=== PATIENT | male | born 1990 | race Hispanic/Latino ===

== ENCOUNTER → 2021-07-03 11:55 | Outpatient (CLI) | payer OTHER, SELFPAY ==
[2021-07-03 19:50] LABS: COVID19 - ORCAS (NP or Nasal) Negative (Negative)
== END ==
PROVIDERS: PCP Physician Assistant Medical; Visit Provider Physician Assistant Medical
DX: Z20.822 Contact with and (suspected) exposure to COVID-19 (principal)
CPT/HCPCS: U0003

== ENCOUNTER → 2021-07-29 08:51 | Outpatient (CLI) | payer OTHER, MEDICAID, SELFPAY ==
[2021-07-29 21:22] LABS: COVID19 - ORCAS (NP or Nasal) POSITIVE (Negative)
== END ==
PROVIDERS: PCP Physician Assistant Medical; Visit Provider Physician Assistant
DX: U07.1 COVID-19 (principal); Z20.822 Contact with and (suspected) exposure to COVID-19
CPT/HCPCS: U0003

== ENCOUNTER → 2023-03-02 10:28 | Outpatient (CLI) | payer OTHER, MEDICAID, SELFPAY ==
[2023-03-02 19:15] LABS: Add Manual Diff / Slide Review NO; Basophils Absolute Auto 0 /uL (0-100); Basophils Percent Auto 0.6 % (0-2); Eosinophils Absolute Auto 100 /uL (0-450); Eosinophils Percent Auto 1.1 % (2-4); Hematocrit 41.8 % (41-53); Hemoglobin 14.6 g/dL (13.5-17.5); Lymphocytes Absolute Auto 1500 /uL (1100-4500); Lymphocytes Percent Auto 25.2 % (25-40); Mean Corpuscular HGB Conc 34.9 % (30-36); Mean Corpuscular Hemoglobin 29.7 PG (26-34); Mean Corpuscular Volume 84.9 fL (80-100); Monocytes Absolute Auto 400 /uL (0-900); Monocytes Percent Auto 7.2 % (3-14); Neutrophils Absolute Auto 4000 /uL (1500-7000); Neutrophils Percent Auto 65.9 % (50-75); Platelet Count 283 X10^3/uL (150-400); Red Blood Cell Count 4.92 X10^6/uL (4.5-5.9); Red Cell Distribution Width 13.3 % (11.6-14.8); White Blood Cell Count 6.1 X10^3/uL (4.5-11.0)
[2023-03-02 19:31] LABS: Alanine Aminotransferase 30 IU/L (<50); Albumin 4.5 g/dL (3.5-5.0); Albumin Globulin Ratio 1.5 (1.0-2.8); Alkaline Phosphatase 74 U/L (38-126); Amylase 60 U/L (30-110); Aspartate Aminotransferase 25 IU/L (17-59); BUN Creatinine Ratio 16.9 (6-22); Bilirubin Total 0.8 mg/dL (0.2-1.3); Blood Urea Nitrogen 11 mg/dL (9-20); Calcium 9.2 mg/dL (8.4-10.2); Carbon Dioxide 25 mmol/L (22-32); Chloride 102 mmol/L (98-107); Cholesterol 210 mg/dL (140-199); Estimated Glomerular Filt Rate > 60 mL/min (>60); Globulin 3.1 g/dL (1.7-4.1); Glucose 102 mg/dL (70-100); HDL Cholesterol 67 mg/dL (40-60); HEMOLYSIS < 15 (0-50); LDL Cholesterol Calculated 126 mg/dL (<100); Lipase 58 U/L (23-300); Potassium 4.4 mmol/L (3.4-5.1); Sodium 136 mmol/L (137-145); Total Protein 7.6 g/dL (6.3-8.2); Triglycerides 85 mg/dL (35-150)
== END ==
PROVIDERS: PCP Physician Assistant; Visit Provider Physician Assistant
DX: R07.9 Chest pain, unspecified (principal); R10.12 Left upper quadrant pain; R10.9 Unspecified abdominal pain; Z87.898 Personal history of other specified conditions; Z13.6 Encounter for screening for cardiovascular disorders
CPT/HCPCS: 80053; 80061; 81002; 82150; 83690; 85025

== ENCOUNTER 2023-03-04 19:09 | Emergency (ER) | payer OTHER, MEDICAID, SELFPAY ==
[2023-03-04] VITALS (8 sets, daily range): BP systolic 110–141; BP diastolic 69–90; PULSE 63–104; RESP 13–22; TEMP 37.3; O2SAT 97–99; BMI 32.0
--- NOTE | 2023-03-04 19:22 | ED_ITS ---
HPI - Chest Pain General Chief Complaint: Chest Pain Stated Complaint: DR REF/ABD PAIN Time Seen by Provider: 03/04/23 19:21 Source: patient Mode of arrival: Ambulatory Limitations: no limitations History of Present Illness HPI narrative: 33-year-old male smoker without any significant chronic medical history presents with a chief complaint of about 2 weeks of gradually worsening abdominal pain that seems to be worse in his upper abdomen. He states it seems to come and go sometimes without any obvious provocation or palliation but other times seems to be worsened when he eats. He denies any radiation to his back. He is had nausea but denies any vomiting. Denies changes in his bowel habits such as constipation or diarrhea. He denies dysuria, frequency or urgency. Related Data Home Medications Medication Instructions Recorded Confirmed hydrocodone 5 mg-acetaminophen 325 1 tab PO Q6H PRN 03/04/23 03/04/23 mg tablet Previous Rx's Medication Instructions Recorded ibuprofen 800 mg tablet 800 mg PO TID PRN pain #40 tabs 03/24/22 naproxen 500 mg tablet 500 mg PO BID PRN pain #40 tabs 06/03/22 lorazepam 0.5 mg tablet 0.5 - 1 mg PO TID PRN panic 08/02/22 attack(s) #14 tabs triamcinolone acetonide 0.1 % 1 applic mucous membrane BID-TID 08/02/22 dental paste #5 grams amoxicillin 875 mg-potassium 1 tab PO Q12H #20 tabs 03/04/23 clavulanate 125 mg tablet hydrocodone 5 mg-acetaminophen 325 1 tab PO Q4-6H PRN pain #10 tabs 03/04/23 mg tablet ondansetron 4 mg disintegrating 4 mg PO TID-QID PRN nausea and 03/04/23 tablet vomiting #10 tabs thiamine HCl (vitamin B1) 100 mg 100 mg PO DAILY #90 tabs 03/04/23 tablet Allergies Allergy/AdvReac Type Severity Reaction Status Date / Time No Known Drug Allergies Allergy Verified 03/04/23 19:21 Review of Systems Review of Systems Narrative: GENERAL: Denies chills, fatigue, malaise, fever, sweats. HEENT: Denies sinus pain, ear pain, sore throat, difficulty swallowing, dizziness. RESPIRATORY: Denies dyspnea, cough, wheezing, hemoptysis, sputum. CARDIOVASCULAR: Denies chest pain, palpitations, orthopnea, edema, GASTROINTESTINAL: See HPI : Denies dysuria, frequency, incontinence, hematuria, urinary retention. MUSCULOSKELETAL: denies weakness, joint pain, or bony pain SKIN: Denies rash, skin lesions, or other NEUROLOGIC: Denies weakness, headache, numbness, change in speech, confusion, seizures, incoordination. PSYCHIATRIC: No concerning psychosocial issues. 12 point review of systems is negative except for those stated above Patient History Medical History Aphthous ulcer of mouth Social History Smoking Status: Current some day smoker Smoking Status: Current some day smoker alcohol intake frequency: other Substance Use Type: marijuana Exam Narrative Exam Narrative: GENERAL: [33] year old patient appears stated age. Well-developed patient, in mild distress. HEAD: Atraumatic. Normocephalic. EYES: Pupils equal round and reactive. Extraocular motions intact. No scleral icterus. No injection or drainage. ENT: Nose without bleeding, purulent drainage. Throat without erythema, tonsillar hypertrophy or exudate. Airway patent. NECK: Trachea midline. Non tender CARDIOVASCULAR: Regular rate and rhythm without murmurs, gallops, or rubs. RESPIRATORY: Clear to auscultation. Breath sounds equal bilaterally. No wheezes, rales, or rhonchi. GASTROINTESTINAL: Abdomen soft, tender in the epigastrium, nondistended. Sounds present EXTREMITIES: No edema or joint tenderness. BACK: Nontender without deformity or crepitance. No flank tenderness. NEURO: AOx3. SKIN: No rash or erythema of visible areas Initial Vital Signs Initial Vital Signs: Vital Signs Temperature 99.2 F 03/04/23 19:17 Pulse Rate 104 H 03/04/23 19:17 Respiratory Rate 18 03/04/23 19:17 Blood Pressure 141/90 H 03/04/23 19:17 Pulse Oximetry 97 03/04/23 19:17 Oxygen Delivery Method Room Air 03/04/23 19:17 Course Orders Ordered: ED Orders 03/04/23 21:09 CT abdomen pelvis w con Stat Discontinued Medications Hydrocodone Bitart/Acetaminophen (Hydrocodone/Acet 5/325 Prepack) 1 bottle MISC SEEINSTR ONE Stop: 03/04/23 21:50 Last Admin: 03/04/23 21:58 Dose: 1 bottle Documented By: ANABELLE Amoxicillin/Clavulanate Potassium (Amoxicillin/Clav 875/125 Mg) 1 tab PO NOW ONE Stop: 03/04/23 21:50 Last Admin: 03/04/23 21:57 Dose: 1 tab Documented By: ANABELLE Aspirin (Aspirin 81 Mg Chew Tab) 324 mg PO NOW ONE Stop: 03/04/23 19:23 Last Admin: 03/04/23 20:08 Dose: 324 mg Documented By: ANABELLE Sodium Chloride (Normal Saline 0.9%) 1,000 mls @ 1,000 mls/hr IV BOLUS ONE Stop: 03/04/23 22:08 Last Admin: 03/04/23 21:52 Dose: Not Given Documented By: ANABELLE Ondansetron HCl (Ondansetron 4 Mg Odt Prepack) 1 bottle MISC SEEINSTR ONE Stop: 03/04/23 21:50 Last Admin: 03/04/23 21:58 Dose: 1 bottle Documented By: ANABELLE Pantoprazole Sodium (Pantoprazole 40 Mg Vial) 40 mg IV NOW ONE Stop: 03/04/23 21:10 Last Admin: 03/04/23 21:52 Dose: 40 mg Documented By: ANABELLE Vital Signs Vital signs: Vital Signs - 8 hr 03/04/23 22:01 03/04/23 21:26 03/04/23 21:26 Pulse Rate 69 63 Respiratory Rate 18 15 Blood Pressure 133/72 122/90 Pulse Oximetry 99 99 Oxygen Delivery Method Room Air 03/04/23 21:30 03/04/23 21:30 Pulse Rate 65 Respiratory Rate 22 Blood Pressure 114/78 Pulse Oximetry 98 Oxygen Delivery Method MDM - Chest Pain Lab Data 03/04/23 19:31 03/04/23 19:31 Labs: Lab Results 03/04/23 03/04/23 03/04/23 Range/Units 19:31 19:31 19:31 WBC 11.1 H (4.5-11.0) X10^3/uL RBC 5.16 (4.5-5.9) X10^6/uL Hgb 14.9 (13.5-17.5) g/dL Hct 44.1 (41-53) % MCV 85.4 (80-100) fL MCH 28.9 (26-34) PG MCHC 33.9 (30-36) % RDW 13.2 (11.6-14.8) % Plt Count 306 (150-400) X10^3/uL Neut % (Auto) 61.4 (50-75) % Lymph % (Auto) 24.6 L (25-40) % Hopkins % (Auto) 9.9 (3-14) % Eos % (Auto) 3.0 (2-4) % Baso % (Auto) 1.1 (0-2) % Neut # (Auto) 6800 (8805-7644) /uL Lymph # (Auto) 2700 (4031-6517) /uL Hopkins # (Auto) 1100 H (0-900) /uL Eos # (Auto) 300 (0-450) /uL Baso # (Auto) 100 (0-100) /uL PT 13.0 H (10.1-12.7) SECONDS INR 1.1 (0.9-1.3) APTT 33 (26-36) SECONDS D-Dimer (<500) ng/ml Sodium 139 (137-145) mmol/L Potassium 3.9 (3.4-5.1) mmol/L Chloride 106 (98-107) mmol/L Carbon Dioxide 23 (22-32) mmol/L BUN 19 (9-20) mg/dL Creatinine 0.85 (0.66-1.25) mg/dL Estimated GFR > 60 (>60) mL/min BUN/Creatinine Ratio 22.4 H (6-22) Glucose 107 H (70-100) mg/dL Calcium 9.6 (8.4-10.2) mg/dL Magnesium 2.1 (1.6-2.3) mg/dL Total Bilirubin 0.6 (0.2-1.3) mg/dL AST 26 (17-59) IU/L ALT 29 (<50) IU/L Alkaline Phosphatase 75 (38-126) U/L Total Creatine Kinase 124 (55-170) U/L Troponin I < 0.012 (0.01-0.034) ng/mL Total Protein 8.0 (6.3-8.2) g/dL Albumin 4.7 (3.5-5.0) g/dL Globulin 3.3 (1.7-4.1) g/dL Albumin/Globulin Ratio 1.4 (1.0-2.8) Lipase 96 D (23-300) U/L 03/04/23 Range/Units 19:31 WBC (4.5-11.0) X10^3/uL RBC (4.5-5.9) X10^6/uL Hgb (13.5-17.5) g/dL Hct (41-53) % MCV (80-100) fL MCH (26-34) PG MCHC (30-36) % RDW (11.6-14.8) % Plt Count (150-400) X10^3/uL Neut % (Auto) (50-75) % Lymph % (Auto) (25-40) % Hopkins % (Auto) (3-14) % Eos % (Auto) (2-4) % Baso % (Auto) (0-2) % Neut # (Auto) (2043-1829) /uL Lymph # (Auto) (8487-0751) /uL Hopkins # (Auto) (0-900) /uL Eos # (Auto) (0-450) /uL Baso # (Auto) (0-100) /uL PT (10.1-12.7) SECONDS INR (0.9-1.3) APTT (26-36) SECONDS D-Dimer 424 (<500) ng/ml Sodium (137-145) mmol/L Potassium (3.4-5.1) mmol/L Chloride (98-107) mmol/L Carbon Dioxide (22-32) mmol/L BUN (9-20) mg/dL Creatinine (0.66-1.25) mg/dL Estimated GFR (>60) mL/min BUN/Creatinine Ratio (6-22) Glucose (70-100) mg/dL Calcium (8.4-10.2) mg/dL Magnesium (1.6-2.3) mg/dL Total Bilirubin (0.2-1.3) mg/dL AST (17-59) IU/L ALT (<50) IU/L Alkaline Phosphatase (38-126) U/L Total Creatine Kinase (55-170) U/L Troponin I (0.01-0.034) ng/mL Total Protein (6.3-8.2) g/dL Albumin (3.5-5.0) g/dL Globulin (1.7-4.1) g/dL Albumin/Globulin Ratio (1.0-2.8) Lipase (23-300) U/L MDM Narrative Medical decision making narrative: CC: 33-year-old male with epigastric pain and generalized abdominal pain Complicating co-morbidities: None known Data collected from: Patient Medical records reviewed: Prior notes reviewed in our EMR Differential considered, but not limited to: Bowel obstruction versus GERD versus pancreatitis versus gallbladder disease versus other Exam documented above, pertinent findings include: Heart rate regular, lungs cl ear to auscultation, upper abdomen tender on exam, bowel sounds present Lab Test results independently reviewed as above. Pertinent findings: Subtle leukocytosis of 11.1, no significant left shift, D-dimer 424, below cutoff, electrolytes and LFTs as well as lipase in normal range Independently reviewed EKG as above Imaging studies independently reviewed: CT of the abdomen and pelvis demonstra gene moderate distal colonic wall thickening with potential infectious versus inflammatory colitis Treatments: Aspirin, saline, Protonix, Augmentin, prepack for both Vicodin and Zofran Re-evaluations: Patient with significant improvement Discussion: Patient presents with abdominal pain, often colicky present for upwards of 2 weeks. No chest pain or shortness of breath. Pain is well controlled, tolerating orals. No signs of sepsis, labs are reassuring and imaging shows a likely colitis. Given slight elevation of white blood cells we will treat for an infectious source with Augmentin. Patient is sent with pain control, encouragement to Employee a clear liquid diet for a few days and then advance as tolerated. Return precautions include but not limited to worsening pain, persistent vomiting or other concerning symptoms Disposition: see below, along with detailed discharge instructions that have been reviewed with patient as well as indications for ED re-evaluation and additional outpatient follow up Discharge Plan Departure Patient Disposition: Home Clinical Impression: Colitis Instructions: DI for Colitis Activity Restrictions/Additional Instructions: *You have been diagnosed with [abdominal pain due to colitis] *What to do: *Please continue to take your regular medications as directed. [x ] New medication prescriptions sent to your pharmacy: [ [facility]] *Please follow up with your primary care provider in 2-3 days, call for an appointment. Let them know you were seen in the Emergency Department and that we ask that you be seen in follow up. We will electronically transmit a record of today's note if your PCP is in our system *Please consider a clear liquid diet for the next 24-48 hours and then slowly advance to regular as tolerated. Also, try to avoid alcohol, nicotine, caffeine, spicy, acidic or fatty foods as this may worsen your symptoms *If you do not have a primary care provider please contact the [facility] Resource line at [phone]. They will ask some questions about your medical history and help get you set up with a doctor in the community. *Return to Emergency Department if you should have any new, worsening or concerning symptoms, such as [fever greater than 101 F, shaking chills, worsening pain, persistent vomiting or other bothersome symptoms] Prescriptions: New hydrocodone-acetaminophen 5-325 mg tablet 1 tab PO Q4-6H PRN (Reason: pain) Qty: 10 0RF ondansetron 4 mg tablet,disintegrating 4 mg PO TID-QID PRN (Reason: nausea and vomiting) Qty: 10 0RF amoxicillin-pot clavulanate 875-125 mg tablet 1 tab PO Q12H Qty: 20 0RF No Action naproxen 500 mg tablet 500 mg PO BID PRN (Reason: pain) Qty: 40 0RF Rx Instructions: Take with food hydrocodone-acetaminophen 5-325 mg tablet 1 tab PO Q6H PRN thiamine HCl (vitamin B1) 100 mg tablet 100 mg PO DAILY Qty: 90 3RF Rx Instructions: take every day ibuprofen 800 mg tablet 800 mg PO TID PRN (Reason: pain) Qty: 40 0RF triamcinolone acetonide 0.1 % paste 1 applic mucous membrane BID-TID Qty: 5 0RF lorazepam 0.5 mg tablet 0.5 - 1 mg PO TID PRN (Reason: panic attack(s)) Qty: 14 0RF Referrals: Ruth Ann PA-C [Primary Care Provider] - Stand Alone Forms: Patient Portal/API
--- NOTE | 2023-03-04 19:22 | DI.RAD.S_ITS ---
PROCEDURE: XR CHEST 1V INDICATIONS: chest pain TECHNIQUE: One view of the chest was acquired. COMPARISON: None. FINDINGS: Surgical changes and devices: None. Lungs and pleura: An incomplete inspiratory result is noted, causing a crowded appearance to the lung markings. No focal infiltrates are seen. No pneumothorax or significant pleural effusions are seen. Mediastinum: Mediastinal contours appear normal. Heart size is within normal limits for portable technique. Bones and chest wall: No suspicious bony lesions. Overlying soft tissues appear unremarkable. IMPRESSION: Portable chest within normal limits for age. Dictated by: Denver Greer M.D. on 03/04/2023 at 19:34 Approved by: Denver Greer M.D. on 03/04/2023 at 19:35
[2023-03-04 19:37] LABS: Add Manual Diff / Slide Review NO; Basophils Absolute Auto 100 /uL (0-100); Basophils Percent Auto 1.1 % (0-2); Eosinophils Absolute Auto 300 /uL (0-450); Hematocrit 44.1 % (41-53); Hemoglobin 14.9 g/dL (13.5-17.5); Lymphocytes Absolute Auto 2700 /uL (1100-4500); Lymphocytes Percent Auto 24.6 % (25-40); Mean Corpuscular HGB Conc 33.9 % (30-36); Mean Corpuscular Hemoglobin 28.9 PG (26-34); Mean Corpuscular Volume 85.4 fL (80-100); Monocytes Absolute Auto 1100 /uL (0-900); Monocytes Percent Auto 9.9 % (3-14); Neutrophils Absolute Auto 6800 /uL (1500-7000); Neutrophils Percent Auto 61.4 % (50-75); Platelet Count 306 X10^3/uL (150-400); Red Blood Cell Count 5.16 X10^6/uL (4.5-5.9); Red Cell Distribution Width 13.2 % (11.6-14.8); White Blood Cell Count 11.1 X10^3/uL (4.5-11.0)
[2023-03-04 19:47] LABS: INR 1.1 (0.9-1.3)
[2023-03-04 19:49] LABS: PTT Partial Thromboplastin Tim 33 SECONDS (26-36)
[2023-03-04 19:52] LABS: Alanine Aminotransferase 29 IU/L (<50); Albumin 4.7 g/dL (3.5-5.0); Albumin Globulin Ratio 1.4 (1.0-2.8); Alkaline Phosphatase 75 U/L (38-126); Aspartate Aminotransferase 26 IU/L (17-59); BUN Creatinine Ratio 22.4 (6-22); Bilirubin Total 0.6 mg/dL (0.2-1.3); Blood Urea Nitrogen 19 mg/dL (9-20); Calcium 9.6 mg/dL (8.4-10.2); Carbon Dioxide 23 mmol/L (22-32); Chloride 106 mmol/L (98-107); Creatine Kinase 124 U/L (55-170); Estimated Glomerular Filt Rate > 60 mL/min (>60); Globulin 3.3 g/dL (1.7-4.1); Glucose 107 mg/dL (70-100); HEMOLYSIS < 15 (0-50); Lipase 96 U/L (23-300); Magnesium 2.1 mg/dL (1.6-2.3); Potassium 3.9 mmol/L (3.4-5.1); Sodium 139 mmol/L (137-145)
[2023-03-04 19:56] LABS: D Dimer 424 ng/ml (<500)
[2023-03-04 20:03] LABS: Troponin I < 0.012 ng/mL (0.01-0.034)
[2023-03-04] MEDS: ASPIRIN 81 MG CHEW TAB 324 MG PO (20:08)
--- NOTE | 2023-03-04 21:09 | DI.CT.S_ITS ---
PROCEDURE: CT ABDOMEN PELVIS W CON INDICATIONS: severe abdominal pain TECHNIQUE: After the administration of IV contrast, axial sections were acquired from the lung bases to the pubic symphysis. Coronal and sagittal reformats were performed. For radiation dose reduction, the following was used: automated exposure control, adjustment of mA and/or kV according to patient size. COMPARISON: [facility], CR, XR CHEST 1V, 03/04/2023, 19:21. FINDINGS: Image quality: Excellent. Lung bases: Unremarkable. Heart: No significant findings. ABDOMEN: Liver: Unremarkable. Gallbladder: Unremarkable. Biliary ducts: Unremarkable. Pancreas: Unremarkable. Spleen: Unremarkable. Incidental note is made of an accessory splenule along the anterior aspect of the primary spleen. Adrenal Glands: Generalized thickening is seen of the adrenal glands, yet without focal adrenal nodules. Kidneys and Ureters: Nonobstructing left-sided kidney stones are seen, with the largest inferiorly measuring 3-4 mm. Stomach and Bowel: There is moderate wall thickening seen involving the distal colon, beginning at the level of the transverse colon and continuing through the rectum. The more proximal colon is within normal limits. No dilated loops of small bowel are seen. Peritoneum: No peritoneal abscess is seen. No abnormal intraperitoneal fluid. No free air. Ventral Wall: No hernia. Abdominal Nodes: No retroperitoneal or mesenteric adenopathy by size criteria. Vessels: Aorta and inferior vena cava are normal in size. PELVIS: Pelvic Organs: Unremarkable. Bladder: Unremarkable. Pelvic Nodes: No enlarged lymph nodes. Miscellaneous: No inguinal hernias are seen. Bones: This patient has transitional lumbar anatomy. For the purposes of this examination, the level with the last pair of ribs is considered to be T12. By this numbering scheme, the L5 level is is on the right. IMPRESSION: Moderate distal colonic wall thickening can be seen. Please correlate with potential infectious and inflammatory causes of colitis. No findings of perforation or abscess can be seen. 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 Dictated by: Denver Greer M.D. on 03/04/2023 at 20:36 Approved by: Denver Greer M.D. on 03/04/2023 at 20:39
[2023-03-04] MEDS: PANTOPRAZOLE 40 MG VIAL IV (21:52)
[2023-03-04] MEDS: AMOXICILLIN/CLAV 875/125 MG 1 TAB PO (21:57)
[2023-03-04] MEDS: ONDANSETRON 4 MG ODT PREPACK 1 BOTTLE MISC (21:58)
[2023-03-04] MEDS: HYDROCODONE/ACET 5/325 PREPACK 1 BOTTLE MISC (21:58)
== END 2023-03-04 22:07 | disposition home or self-care (01) ==
PROVIDERS: Emergency Provider Emergency Medicine; PCP Physician Assistant
DX: K52.9 Noninfective gastroenteritis and colitis, unspecified (principal); R07.9 Chest pain, unspecified
CPT/HCPCS: 36415; 71045; 74177; 80053; 82550; 83690; 83735; 84484; 85025; 85379; 85610; 85730; 93005; 93010; 96374; 99284; C9113; Q9967

== ENCOUNTER 2023-10-13 14:23 | Emergency (ER) | payer OTHER, MEDICAID, SELFPAY ==
[2023-10-13 14:31] VITALS: BP 159/90
[2023-10-13 14:32] VITALS: PULSE 72; O2SAT 100
[2023-10-13 14:37] VITALS: BP 159/90; PULSE 71; RESP 20; TEMP 37.4; O2SAT 99; BMI 33.4
--- NOTE | 2023-10-13 14:40 | ED_ITS ---
HPI - General Adult General Chief complaint: Abdominal Pain Stated complaint: lower abd pain, sent by [facility] Time Seen by Provider: 10/13/23 14:33 Source: patient Mode of arrival: Ambulatory Limitations: no limitations History of Present Illness HPI narrative: Patient is a 33-year-old male who is here for evaluation of generalized abdominal discomfort and diarrhea. His symptoms been going on for approximately 1 week. It started initially with 2 days of vomiting and is now moved to diarrhea. No blood in his stool. No fevers. He has had his appendix removed. No urinary symptoms. He just recently returned home from a trip to [place]. He saw his primary care doctor who sent him to the emergency department for further evaluation. Related Data Previous Rx's Medication Instructions Recorded ciprofloxacin HCl 500 mg tablet 500 mg PO BID 5 days #10 tabs 10/13/23 (Cipro) Allergies Allergy/AdvReac Type Severity Reaction Status Date / Time No Known Drug Allergies Allergy Verified 10/13/23 08:43 Review of Systems Constitutional Constitutional: Reports system reviewed and no additional complaints, except as documented Gastrointestinal Gastrointestinal: Reports system reviewed and no additional complaints, except as documented Genitourinary Genitourinary: Reports system reviewed and no additional complaints, except as documented Integumentary/Breasts Skin/Breast: Reports system reviewed and no additional complaints, except as documented Neurologic Neurologic: Reports system reviewed and no additional complaints, except as documented Patient History Medical History History of kidney stones Cannabis dependence Alcohol dependence in remission Elevated blood pressure reading Hematuria Aphthous ulcer of mouth Social History Smoking Status: Current some day smoker 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 Quit alcohol 2 weeks ago feels he drinks a lot less than his peers (4-5/night) Using marijuana daily 02/2023 Smoking Status: Current some day smoker alcohol intake frequency: other Substance Use Type: marijuana Exam Initial Vital Signs Initial Vital Signs: Vital Signs Blood Pressure 159/90 H 10/13/23 14:31 Const General: cooperative and No ill appearing HENMT Head: normal to inspection and normocephalic Resp Effort & Inspection: normal respiratory effort Auscultation: clear to auscultation bilaterally Cardio Rate: regular rate Rhythm: regular rhythm GI Inspection: normal to inspection and non-distended Palpation: soft, No firm, No guarding and tender Neuro General: patient alert and patient awake Course Orders Ordered: ED Orders 10/13/23 14:46 CT abdomen pelvis w con Stat 10/13/23 15:19 Complete Blood Count AUTO DIFF Stat Comprehensive Metabolic Panel Stat Lipase Stat Discontinued Medications Sodium Chloride (Normal Saline 0.9%) 1,000 mls @ 1,000 mls/hr IV BOLUS ONE Stop: 10/13/23 15:42 Last Admin: 10/13/23 15:25 Dose: 1,000 mls/hr Documented By: [email or web address] Vital Signs Vital signs: Vital Signs - 8 hr 10/13/23 14:31 10/13/23 14:32 10/13/23 14:37 Temperature 99.3 F Pulse Rate 72 71 Respiratory Rate 20 Blood Pressure 159/90 H 159/90 H Pulse Oximetry 100 99 Oxygen Delivery Method Room Air 10/13/23 15:00 Temperature Pulse Rate 61 Respiratory Rate Blood Pressure Pulse Oximetry 100 Oxygen Delivery Method Medical Decision Making Lab Data Lab results reviewed: Yes I reviewed the patient's lab results. 10/13/23 15:19 10/13/23 15:19 Labs: Lab Results 10/13/23 Range/Units 15:19 WBC 9.5 (4.5-11.0) X10^3/uL RBC 5.31 (4.5-5.9) X10^6/uL Hgb 15.5 (13.5-17.5) g/dL Hct 44.5 (41-53) % MCV 83.7 (80-100) fL MCH 29.2 (26-34) PG MCHC 34.9 (30-36) % RDW 12.7 (11.6-14.8) % Plt Count 310 (150-400) X10^3/uL Neut % (Auto) 60.1 (50-75) % Lymph % (Auto) 22.9 L (25-40) % [place] % (Auto) 13.4 (3-14) % Eos % (Auto) 2.7 (2-4) % Baso % (Auto) 0.9 (0-2) % Neut # (Auto) 5700 (3639-7469) /uL Lymph # (Auto) 2200 (9007-9453) /uL [place] # (Auto) 1300 H (0-900) /uL Eos # (Auto) 300 (0-450) /uL Baso # (Auto) 100 (0-100) /uL Sodium 136 L (137-145) mmol/L Potassium 3.2 L (3.4-5.1) mmol/L Chloride 105 (98-107) mmol/L Carbon Dioxide 22 (22-32) mmol/L BUN 12 (9-20) mg/dL Creatinine 0.67 (0.66-1.25) mg/dL Estimated GFR > 60 (>60) mL/min BUN/Creatinine Ratio 17.9 (6-22) Glucose 115 H (70-100) mg/dL Calcium 8.6 (8.4-10.2) mg/dL Total Bilirubin 1.0 (0.2-1.3) mg/dL AST 55 (17-59) IU/L ALT 85 H (<50) IU/L Alkaline Phosphatase 79 (38-126) U/L Total Protein 7.5 (6.3-8.2) g/dL Albumin 4.4 (3.5-5.0) g/dL Globulin 3.1 (1.7-4.1) g/dL Albumin/Globulin Ratio 1.4 (1.0-2.8) Lipase 209 (23-300) U/L Imaging Data CT scan - abdomen/pelvis: Radiologist's Impression: PROCEDURE: CT ABDOMEN PELVIS W CON INDICATIONS: Generalized abdominal pain with diarrhea TECHNIQUE: After the administration of intravenous contrast, axial sections acquired from the lung bases to the pubic symphysis. Coronal and sagittal reformats were performed. For radiation dose reduction, the following was used: automated exposure control, adjustment of mA and/or kV according to patient size. COMPARISON: [facility], CT, CT ABDOMEN PELVIS W CON, 03/04/2023, 21:10. FINDINGS: Image quality: Diagnostic. Lower Chest: No significant findings. ABDOMEN: Liver: No solid mass. Gallbladder: No radiopaque gallstones or wall thickening. Biliary ducts: No biliary dilation. Pancreas: No ductal dilation. Spleen: Size is within normal limits. Incidental note is made of an accessory splenule along the anterolateral aspect of the primary spleen. Adrenal Glands: No adrenal nodules. Kidneys and Ureters: No hydronephrosis. No solid mass. No complex renal cystic lesion which requires follow up. Nonobstructing left-sided kidney stones are seen that measure up to 5 mm and 400 Hounsfield units. Stomach and Bowel: The colon is relatively decompressed. [id number] generalized colonic wall thickening can be seen. No dilated loops of small bowel are seen. A gastric tube is seen, with the tip not visible, yet traversing below the level of the diaphragm. Peritoneum: No abnormal intraperitoneal fluid. No free air. Ventral Wall: No significant ventral hernia. Abdominal Nodes: No retroperitoneal or mesenteric adenopathy by size criteria. Vessels: Aorta and inferior vena cava are normal in size. PELVIS: Pelvic Organs: Unremarkable. Bladder: No bladder wall thickening, accounting for underdistention. Pelvic Nodes: No enlarged lymph nodes. Miscellaneous: No inguinal hernias are seen. Bones: No aggressive osseous abnormality. This patient has transitional lumbar anatomy. For the purposes of this examination, the level with the last pair of ribs is considered to be T12. By this numbering scheme, the L5 level is transitional and is prominently sacralized on the right. IMPRESSION: Moderate generalized colonic wall thickening can be seen, which is consistent with colitis. Please correlate with infectious and inflammatory causes of colitis. Additional findings: Accessory splenule Nonobstructing left-sided kidney stones Transitional lumbar anatomy, with a sacralized L5 level on the right MDM Narrative Medical decision making narrative: Patient has a relatively benign abdominal exam. His labs are unremarkable. Tolerating oral intake. CT scan shows colitis which is very consistent with his presentation today. He was no longer vomiting. The plan will be to provide a prescription for antibiotics but he was going to hold on filling this for the next 24-48 hours to see if his symptoms are self-limiting. If they worsen then he can fill the antibiotics and take them as directed. No indication for admission to the hospital. He was given return precautions. He expressed understanding and agreement. Discharge Plan Departure Patient Disposition: Home Clinical Impression: Colitis, Diarrhea Instructions: Diarrhea, DI for Colitis Activity Restrictions/Additional Instructions: Be sure that you were increasing your fluid intake. Keep the prescription for antibiotics and see how your symptoms go over the next 24-48 hours. If your symptoms are not improving or worsening fill the prescription and start taking it as directed. Return to the emergency department for worsening symptoms Prescriptions: New ciprofloxacin HCl [Cipro] 500 mg tablet 500 mg PO BID 5 Days Qty: 10 0RF Referrals: Ruth Ann PA-C [Primary Care Provider] - Stand Alone Forms: Patient Portal/API
--- NOTE | 2023-10-13 14:46 | DI.CT.S_ITS ---
PROCEDURE: CT ABDOMEN PELVIS W CON INDICATIONS: Generalized abdominal pain with diarrhea TECHNIQUE: After the administration of intravenous contrast, axial sections acquired from the lung bases to the pubic symphysis. Coronal and sagittal reformats were performed. For radiation dose reduction, the following was used: automated exposure control, adjustment of mA and/or kV according to patient size. COMPARISON: [facility], CT, CT ABDOMEN PELVIS W CON, 03/04/2023, 21:10. FINDINGS: Image quality: Diagnostic. Lower Chest: No significant findings. ABDOMEN: Liver: No solid mass. Gallbladder: No radiopaque gallstones or wall thickening. Biliary ducts: No biliary dilation. Pancreas: No ductal dilation. Spleen: Size is within normal limits. Incidental note is made of an accessory splenule along the anterolateral aspect of the primary spleen. Adrenal Glands: No adrenal nodules. Kidneys and Ureters: No hydronephrosis. No solid mass. No complex renal cystic lesion which requires follow up. Nonobstructing left-sided kidney stones are seen that measure up to 5 mm and 400 Hounsfield units. Stomach and Bowel: The colon is relatively decompressed. [id number] generalized colonic wall thickening can be seen. No dilated loops of small bowel are seen. A gastric tube is seen, with the tip not visible, yet traversing below the level of the diaphragm. Peritoneum: No abnormal intraperitoneal fluid. No free air. Ventral Wall: No significant ventral hernia. Abdominal Nodes: No retroperitoneal or mesenteric adenopathy by size criteria. Vessels: Aorta and inferior vena cava are normal in size. PELVIS: Pelvic Organs: Unremarkable. Bladder: No bladder wall thickening, accounting for underdistention. Pelvic Nodes: No enlarged lymph nodes. Miscellaneous: No inguinal hernias are seen. Bones: No aggressive osseous abnormality. This patient has transitional lumbar anatomy. For the purposes of this examination, the level with the last pair of ribs is considered to be T12. By this numbering scheme, the L5 level is transitional and is prominently sacralized on the right. IMPRESSION: Moderate generalized colonic wall thickening can be seen, which is consistent with colitis. Please correlate with infectious and inflammatory causes of colitis. 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 on 10/13/2023 at 14:40 Approved by: Denver Greer M.D. on 10/13/2023 at 14:44
[2023-10-13 15:00] VITALS: PULSE 61; O2SAT 100
[2023-10-13] MEDS: SODIUM CHLORIDE 0.9% 1,000 ML 1000 ML IV (15:25)
[2023-10-13 15:26] LABS: Add Manual Diff / Slide Review NO; Basophils Absolute Auto 100 /uL (0-100); Basophils Percent Auto 0.9 % (0-2); Eosinophils Absolute Auto 300 /uL (0-450); Eosinophils Percent Auto 2.7 % (2-4); Hematocrit 44.5 % (41-53); Hemoglobin 15.5 g/dL (13.5-17.5); Lymphocytes Absolute Auto 2200 /uL (1100-4500); Lymphocytes Percent Auto 22.9 % (25-40); Mean Corpuscular HGB Conc 34.9 % (30-36); Mean Corpuscular Hemoglobin 29.2 PG (26-34); Mean Corpuscular Volume 83.7 fL (80-100); Monocytes Absolute Auto 1300 /uL (0-900); Monocytes Percent Auto 13.4 % (3-14); Neutrophils Absolute Auto 5700 /uL (1500-7000); Neutrophils Percent Auto 60.1 % (50-75); Platelet Count 310 X10^3/uL (150-400); Red Blood Cell Count 5.31 X10^6/uL (4.5-5.9); Red Cell Distribution Width 12.7 % (11.6-14.8); White Blood Cell Count 9.5 X10^3/uL (4.5-11.0)
[2023-10-13 15:41] LABS: Alanine Aminotransferase 85 IU/L (<50); Albumin 4.4 g/dL (3.5-5.0); Albumin Globulin Ratio 1.4 (1.0-2.8); Alkaline Phosphatase 79 U/L (38-126); Aspartate Aminotransferase 55 IU/L (17-59); BUN Creatinine Ratio 17.9 (6-22); Blood Urea Nitrogen 12 mg/dL (9-20); Calcium 8.6 mg/dL (8.4-10.2); Carbon Dioxide 22 mmol/L (22-32); Chloride 105 mmol/L (98-107); Estimated Glomerular Filt Rate > 60 mL/min (>60); Globulin 3.1 g/dL (1.7-4.1); Glucose 115 mg/dL (70-100); HEMOLYSIS 19 (0-50); Lipase 209 U/L (23-300); Potassium 3.2 mmol/L (3.4-5.1); Sodium 136 mmol/L (137-145); Total Protein 7.5 g/dL (6.3-8.2)
[2023-10-13 16:03] VITALS: O2SAT 94
[2023-10-13 16:04] VITALS: BP 131/78; PULSE 72; O2SAT 100
== END 2023-10-13 16:14 | disposition home or self-care (01) ==
PROVIDERS: Emergency Provider Emergency Medicine; PCP Physician Assistant
DX: K52.9 Noninfective gastroenteritis and colitis, unspecified (principal)
CPT/HCPCS: 36415; 74177; 80053; 83690; 85025; 99284; Q9967

== ENCOUNTER → 2023-12-29 08:48 | Outpatient (CLI) | payer OTHER, MEDICAID, SELFPAY ==
[2023-12-30 01:55] LABS: Hepatitis B Surface Antigen NEGATIVE s/c (NEGATIVE)
[2023-12-30 01:59] LABS: Hep C Virus Ab w/Reflex Quant NEGATIVE s/c (NEGATIVE)
[2023-12-30 03:43] LABS: Hemoglobin A1C% w Est Avg Glu 5.5 % (4.0-6.0)
[2023-12-30 04:37] LABS: Alanine Aminotransferase 37 IU/L (<50); Albumin 4.6 g/dL (3.5-5.0); Albumin Globulin Ratio 1.5 (1.0-2.8); Alkaline Phosphatase 87 U/L (38-126); Aspartate Aminotransferase 26 IU/L (17-59); Bilirubin Total 0.8 mg/dL (0.2-1.3); Bilirubin Unconjugated 0.3 mg/dL (0.0-1.1); Cholesterol 243 mg/dL (140-199); HDL Cholesterol 64 mg/dL (40-60); HEMOLYSIS < 15 (0-50); LDL Cholesterol Calculated 142 mg/dL (<100); Total Protein 7.6 g/dL (6.3-8.2); Triglycerides 187 mg/dL (35-150)
[2023-12-30 05:54] LABS: Ferritin 68 ng/mL (18-464)
[2023-12-30 05:59] LABS: HEMOLYSIS < 15 (0-50); TSH w/ Reflex to FT4 3.67 uIU/mL (0.47-4.68)
[2023-12-31 00:36] LABS: Hepatitis B Core Antibody Negative (Negative)
== END ==
PROVIDERS: PCP Family Medicine; Visit Provider Family Medicine
DX: R79.89 Other specified abnormal findings of blood chemistry (principal)
CPT/HCPCS: 80061; 80076; 82728; 83036; 83540; 83550; 84443; 86704; 86706; 86803; 87340

== ENCOUNTER 2024-03-19 12:30 | Day surgery (SDC) | payer OTHER, MEDICAID, SELFPAY ==
[2024-03-19] VITALS (10 sets, daily range): BP systolic 88–151; BP diastolic 55–102; PULSE 56–671; RESP 8–26; TEMP 36.2–36.7; O2SAT 82–100
--- NOTE | 2024-03-19 | PATH_ITS ---
[facility] Accession Number: [id number] No. of containers..04 Tissue . 01 Material submitted: . PART A: duodenum - DUODENUM PART B: colon - RIGHT COLON PART C: colon - TRANSVERSE COLON PART D: colon - LEFT COLON . 01 Diagnosis: A. DUODENUM, BIOPSY: Duodenal mucosa with no diagnostic abnormality. Negative for active inflammation, features of sprue, dysplasia, or malignancy. . B. RIGHT COLON, BIOPSY: Colonic mucosa with no diagnostic abnormality. Negative for active, chronic, and microscopic colitis. Negative for dysplasia and malignancy. . C. TRANSVERSE COLON, BIOPSY: Colonic mucosa with no diagnostic abnormality. Negative for active, chronic, and microscopic colitis. Negative for dysplasia and malignancy. . D. LEFT COLON, BIOPSY: Colonic mucosa with no diagnostic abnormality. Negative for active, chronic, and microscopic colitis. Negative for dysplasia and malignancy. . [facility] 03/21/2024 1703 Local . 01 Electronically signed: . Doug Pizano MD, PhD, Pathologist NPI- [id number] . 01 Gross description: . Part A: DUODENUM: Received in formalin is 1 fragment(s) of wilkerson, soft tissue measuring 0.3 x 0.2 x 0.2 cm submitted entirely in 1 cassette(s) Part B: RIGHT COLON: Received in formalin is 1 fragment(s) of wilkerson, soft tissue measuring 0.3 x 0.3 x 0.3 cm submitted entirely in 1 cassette(s) Part C: TRANSVERSE COLON: Received in formalin are 2 fragment(s) of wilkerson, soft tissue measuring 0.2 x 0.2 x 0.2 cm to 0.4 x 0.3 x 0.2 cm submitted entirely in 1 cassette(s) Part D: LEFT COLON: Received in formalin are 2 fragment(s) of wilkerson, soft tissue measuring 0.3 x 0.2 x 0.1 cm to 0.5 x 0.2 x 0.2 cm submitted entirely in 1 cassette(s) /VINCE 03/20/2024 0133 Local . 01 Pathologist provided ICD-10: R19.4 . 01 CPT . 390624, 732803, 780876, [id number] Specimen Comment: A courtesy copy of this report has been sent to [phone] Performed at: [address] [id number] MD Ankur Griffith MD Phone: [phone]
--- NOTE | 2024-03-19 14:14 | PM.HP.1 ---
History of Present Illness History of Present Illness Date Patient Seen: 03/19/24 Time Patient Seen: 14:14 Chief complaint: EGD & Colonoscopy w/poss bx's Narrative: Enrique is a 34-year-old man who presents with chronic diarrhea and abdominal pain. See the office note from January for details. His abdominal pain has not been bad lately. 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 Quit alcohol 2 weeks ago feels he drinks a lot less than his peers (4-5/night) Using marijuana daily 02/2023 Meds Home Medications and Allergies Home Medications Medication Instructions Recorded Confirmed Type fluvoxamine 100 mg tablet See Rx Instructions PO BEDTIME #60 01/06/24 02/27/24 Rx tabs fluvoxamine 100 mg tablet 100 mg PO BID 03/19/24 03/19/24 History Exam Const General: No acute distress Resp Effort & Inspection: normal respiratory effort Assessment & Plan Assessment and plan (1) Colitis: Status: Chronic Plan EGD and colonoscopy Time-Based Coding :: [TOTAL MINUTES] spent with patient and on the chart (including review of chart, obtaining history, exam, reviewing outside data, placing orders, documenting exam and treatment plan, and counseling patient) on [DATE].
[2024-03-19] MEDS: LACTATED RINGERS 1,000 ML 150 ML IV (14:30)
--- NOTE | 2024-03-19 15:37 | PM.OP.EC ---
Operative Date/Time/Diagnoses Date of procedure: 03/19/24 Time of procedure: 15:37 Pre-op diagnosis: Chronic diarrhea and abdominal pain Post-op diagnosis: same Procedure & Clinicians Study performed: EGD and colonoscopy Same procedure as scheduled: Yes Surgeon: Adam Patel Procedure Notes Procedure in detail: Surgeon: Adam Patel MD Anesthesia: Noelle Pardo CRNA Procedure in detail: A timeout was performed. A bite blocked was placed and monitors were attached to the patient. The patient was positioned in the left lateral decubitus position. Sedation was administered. Once the patient was sedated the endoscope was inserted through the bite block and passed through the esophagus and stomach and into the duodenum. No obvious abnormalities were identified. We performed random biopsies of the duodenal mucosa. We then withdrew the scope into the stomach. No abnormalities were identified. The endoscope was retroflexed and no hiatal hernia was seen. The endoscope was straightned and withdrawn into the esophagus. No abnormalities were seen. EGD findings: Grossly normal EGD Next we repositioned the patient for a colonoscopy. A digital rectal exam was performed and was normal. The colonoscope was inserted and advanced to the cecum. The appendiceal orifice was identified and photographed. The scope was slowly withdrawn over greater than 6 minutes. No obvious abnormalities were identified. We performed random biopsies with a cold forceps from the right colon, transverse colon and descending colon. The scope was retroflexed in the rectum and no obvious abnormalities were found. Colonoscopy findings: Normal colon Total procedural EBL: 5 mL Scope withdrawal time: 10 minutes Sedation minutes: 26 minute Post-procedure Disposition: PACU
--- NOTE | 2024-03-19 15:53 | SUR.PHASEI ---
Pt to PACU with anesth with oral airway in place. Pt with laryngospasm and difficulty breathing. Nitza X RAY NURSE to bedside. 15L mask, Nasal trumpet placed then ambu bag to assist breathing. Suction to nasal trumpet with mod amt sputum blood tinged. Decadron 10mg given per anesth. Oral aiway out at 1545. Pt now talking to nurse, awake, alert. Denies SOB.
== END 2024-03-19 16:50 | disposition home or self-care (01) ==
PROVIDERS: PCP Family Medicine; Referring Provider Surgery; Visit Provider Surgery
PROC: 0DJ08ZZ Inspection of Upper Intestinal Tract, Via Natural or Artificial Opening Endoscopic (ICD-10-PCS; CPT 43235; principal; 2024-03-19 15:15)
PROC: 0DJD8ZZ Inspection of Lower Intestinal Tract, Via Natural or Artificial Opening Endoscopic (ICD-10-PCS; CPT 45378; 2024-03-19 15:15)
DX: R10.9 Unspecified abdominal pain (principal); R19.7 Diarrhea, unspecified
CPT/HCPCS: 45380; 43235; J2704

== ENCOUNTER → 2025-03-18 11:46 | Outpatient (CLI) | payer OTHER, SELFPAY ==
[2025-03-18 18:41] LABS: Add Manual Diff / Slide Review NO; Hematocrit 46.3 % (41-53); Hemoglobin 16.1 g/dL (13.5-17.5); Lymphocytes Absolute Auto 2400 /uL (1100-4500); Mean Corpuscular HGB Conc 34.7 % (30-36); Mean Corpuscular Hemoglobin 29.6 PG (26-34); Mean Corpuscular Volume 85.2 fL (80-100); Platelet Count 287 X10^3/uL (150-400)
[2025-03-18 18:49] LABS: Alanine Aminotransferase 44 IU/L (<50); Albumin 5.0 g/dL (3.5-5.0); Albumin Globulin Ratio 1.5 (1.0-2.8); Alkaline Phosphatase 98 U/L (38-126); Blood Urea Nitrogen 15 mg/dL (9-20); Calcium 9.6 mg/dL (8.4-10.2); Carbon Dioxide 23 mmol/L (22-32); Chloride 104 mmol/L (98-107); Cholesterol 232 mg/dL (140-199); Estimated Glomerular Filt Rate > 60 mL/min (>60); Globulin 3.3 g/dL (1.7-4.1); Glucose 112 mg/dL (70-99); HDL Cholesterol 81 mg/dL (40-60); HEMOLYSIS < 15 (0-50); Potassium 4.2 mmol/L (3.4-5.1); Sodium 136 mmol/L (137-145); Total Protein 8.3 g/dL (6.3-8.2); Triglycerides 72 mg/dL (35-150)
[2025-03-18 18:52] LABS: Hemoglobin A1C% w Est Avg Glu 5.8 % (4.0-6.0)
[2025-03-18 19:20] LABS: Thyroid Stimulating Hormone 1.61 uIU/mL (0.47-4.68)
== END ==
PROVIDERS: PCP Family Medicine; Visit Provider Family Medicine
DX: E78.2 Mixed hyperlipidemia (principal); F32.A Depression, unspecified; E66.9 Obesity, unspecified; R79.89 Other specified abnormal findings of blood chemistry; F41.9 Anxiety disorder, unspecified; R19.7 Diarrhea, unspecified
CPT/HCPCS: 80053; 80061; 83036; 84443; 85025